=== PATIENT | male | born 1990 | race Caucasian/White ===

== ENCOUNTER 2021-08-31 01:26 | Emergency (ER) | payer MEDICAID ==
[~2021-08-31] VITALS: Ht 175.3 cm; Wt 64.9 kg
--- NOTE | 2021-08-31 01:33 | NUR ---
BIBRA 878 REQUESTING VOL. ADMISSION TO A [facility] FACILITY. PLAN TO S/I FROM GETTING SICK OF COVID.
--- NOTE | 2021-08-31 02:03 | NUR ---
INSULATION EXTRUDER OPERATOR AT PT'S BEDSIDE
--- NOTE | 2021-08-31 02:11 | NUR ---
URINE AND COVID ANTIGEN SWAB COLLECTED AND SENT TO LAB
[2021-08-31 02:24] LABS: BASOPHILS # (AUTO) 0.1 K/uL (0.0-0.2); BASOPHILS % (AUTO) 0.9 % (0.0-2.0); EOSINOPHILS % (AUTO) 0.9 % (0.0-6.0); HEMATOCRIT 40 % (39-51); HEMOGLOBIN 13.3 g/dL (13.5-17.5); LYMPHOCYTES # (AUTO) 2.5 K/uL (0.8-4.8); MEAN CORPUSCULAR HGB CONC 34 g/dl (31.0-36.0); MEAN CORPUSCULAR VOLUME 85 fL (80-96); MONOCYTES # (AUTO) 0.8 K/uL (0.1-1.30); MONOCYTES % (AUTO) 7.6 % (2.0-12.0); NEUTROPHILS # (AUTO) 7.3 K/uL (1.8-8.9); NEUTROPHILS % (AUTO) 67.6 % (43.0-81.0); PLATELET COUNT (AUTO) 284 K/uL (150-450); RED BLOOD CELL COUNT(AUTO) 4.64 MIL/uL (4.5-6.0); WHITE BLOOD COUNT (AUTO) 10.8 K/uL (4.3-11.0)
[2021-08-31 02:30] LABS: BILIRUBIN,URINE NEGATIVE (NEGATIVE); COLOR,URINE YELLOW (YELLOW); LEUKOCYTE ESTERASE ,URINE NEGATIVE (NEGATIVE); NITRITE, URINE NEGATIVE (NEGATIVE); PROTEIN,URINE NEGATIVE (NEGATIVE); UGLUCOSE NEGATIVE (NEGATIVE); UROBILINOGEN,URINE 0.2 EU/dL (0.2)
[2021-08-31 02:37] LABS: CALCIUM, SERUM 8.8 mg/dL (8.5-10.1); CARBON DIOXIDE 31 mmol/L (21-32); CHLORIDE 101 mmol/L (98-107); CREATININE 1.1 mg/dL (0.6-1.3); GLUCOSE 126 mg/dL (74-106); POTASSIUM 3.6 mmol/L (3.5-5.1); SODIUM SERUM 137 mmol/L (136-145); UREA NITROGEN, BLOOD 19 mg/dL (7-18)
[2021-08-31 02:44] LABS: ALANINE AMINOTRANSFERASE 29 U/L (12-78); ALBUMIN 3.8 g/dL (3.4-5.0); ALKALINE PHOSPHATASE 81 U/L (46-116); ASPARTATE AMINOTRANSFERASE 29 U/L (15-37); BILIRUBIN,DIRECT 0.1 mg/dL (0.0-0.2); BILIRUBIN,TOTAL 0.4 mg/dL (0.2-1.0)
[2021-08-31 02:45] LABS: ACETAMINOPHEN 0 ug/ml (10-30); ALCOHOL, BLOOD < 3 mg/dL (0-0)
--- NOTE | 2021-08-31 06:44 | NUR ---
PT MOVED TO BED 14, PROVIDED WITH BLANKETS.
--- NOTE | 2021-08-31 08:46 | NUR ---
faxed clinicals to [facility]
--- NOTE | 2021-08-31 09:20 | NUR ---
PATIENT WAS PROVIDED BREAKFAST. TOLERATED WELL
--- NOTE | 2021-08-31 13:53 | NUR ---
PT IS ACCEPTED AT [facility] UNDER . # FOR REPORT [phone] PER COORDINATOR OF EVALUATION SEND PATIENT BETWEEN 5PM TO 6 PM.
--- NOTE | 2021-08-31 14:01 | NUR ---
CALLED [facility] AND SET UP S TRANSPORT TO [facility] ETA [phone]
--- NOTE | 2021-08-31 15:12 | NUR ---
REPORT GIVEN TO JEREMIAS BRO OF [facility] FOR [facility].
[2021-08-31 17:11] VITALS: BP 123/68
--- NOTE | 2021-08-31 17:11 | NUR ---
REPORT GIVEN TO EMT FOR PT TRANSFER TO [facility].
== END 2021-08-31 17:13 ==
LOC: ER 01:31
DX: R45.851 Suicidal ideations (principal); F32.A Depression, unspecified; F15.10 Other stimulant abuse, uncomplicated; Z20.822 Contact with and (suspected) exposure to COVID-19
CPT/HCPCS: 36415; 80048; 80076; 80143; 80307; 80320; 81003; 85025; 87426; 99285; C9803; G0480